=== PATIENT | female | born 1950 | race Caucasian/White ===

== ENCOUNTER 2017-10-26 07:54 | Inpatient (IN) ==
[~2017-10-26 07:54] MED LIST: ACETAMINOPHEN 500 MG TABLET PO ONE; CLINDAMYCIN PB 900 MG/50 ML BAG IV ONE; DEXAMETHASONE 4 MG/ML INJECTION IVP ONE; FAMOTIDINE PB 20 MG/50 ML BAG IV ONE; LIDOCAINE 1% (10mg/ml) 2mL INJ PF SDV ID ONE; MELOXICAM 15 MG TABLET PO ONE; METOCLOPRAMIDE 10mg/2ml INJECTION IVP ONE; ONDANSETRON 4 MG/2 ML INJECTION IVP ONE; TRANEXAMIC ACID 1,000 MG in NS 100 ML IV ONE
[2017-10-26] MEDS ORDERED: EPINEPHrine PF 0.25 MG, BUPIVACAINE 0.25% PF 30 ML, KETOROLAC INJ 60 MG in NS 30 ML OPSITE ONE (08:00)
[2017-10-26] MEDS: NOZIN NASAL SWAB NAS SCH ×5 (08:47→21:54)
[2017-10-26] MEDS ORDERED: SALINE FLUSH 10ml SYRINGE IV PRN (09:01)
--- NOTE | 2017-10-26 09:38 | Anesthesia Preoperative Report ---
<Chris Jackman - Last Filed: 10/26/17 11:10> Anesthesia Preoperative Record - Date and Time Date: 10/26/17 Preoperative Diagnosis: Unilateral primary osteoarthristis, right hip Allergies/Adverse Reactions: Allergies Allergy/AdvReac Type Severity Reaction Status Date / Time Influenza Virus Vaccines Allergy Unknown erythema Verified 10/26/17 08:28 Penicillins Allergy Unknown Hives Verified 10/26/17 08:28 lisinopril AdvReac Unknown Cough Verified 10/26/17 08:28 morphine AdvReac Unknown n/v Verified 10/26/17 08:28 niacin AdvReac Unknown fatigue, Verified 10/26/17 08:28 rash - Vital Signs Vital Signs: Temperature 98.0 F 10/26/17 08:16 Pulse Rate 82 10/26/17 09:06 Respiratory Rate 18 10/26/17 09:06 Blood Pressure 122/72 10/26/17 09:06 Pulse Oximetry 97 10/26/17 08:16 Height and Weight: Height 1.6 m Weight 89.7 kg Body Mass Index 35.0 - Medications Inpatient Medications: Current Medications Lactated Ringer's (Lactated Ringers) 1,000 mls @ 50 mls/hr IV .Q20H [facility] Last Admin: 10/26/17 08:45 Dose: 50 mls/hr Sodium Chloride (Iv Flush) 10 - 80 ml IV PRN PRN PRN Reason: [place] Home Medications: Home Medications Medication Instructions Recorded Confirmed Type Cozaar (losartan) 25 mg tablet 25 mg PO DAILY 90 Days #90 tab 08/20/17 10/26/17 History Flonase (Fluticasone) 50 mcg nasal 1 spray EA NOSTRIL BID 14 Days #16 08/20/17 10/26/17 History spray g Lipitor (atorvastatin) 20 mg tablet 10 mg PO DAILY 90 Days #45 tab 08/20/17 History Wellbutrin SR (bupropion HCl SR) 150 mg PO BID 90 Days #180 tab 08/20/17 History 150 mg tablet,12 hr albuterol sulfate HFA 90 2 puff INH Q4-6HR PRN 14 Days #9 g 08/20/17 10/26/17 History mcg/actuation aerosol inhaler amitriptyline 25 mg tablet 25 mg PO HS 90 Days #90 tab 08/20/17 10/26/17 History aspirin 81 mg tablet,delayed 81 mg PO DAILY 08/20/17 10/25/17 History release Acetaminophen [Tylenol] 500 - 1,000 mg PO BID 09/29/17 10/26/17 History Cartilage/Collagen/Bor/Hyalur 1 each PO DAILY 09/29/17 10/26/17 History [Joint Health Tablet] Metabolism Boost 1 tab PO DAILY 09/29/17 10/26/17 History [place]-3/Dha/Epa/Fish Oil [Fish Oil 1,000 mg PO DAILY 09/29/17 10/26/17 History 1,000 mg Softgel] raNITIdine HCl [Zantac] 150 mg PO DAILY 10/18/17 10/26/17 History Docusate Sodium [Colace] 1 cap PO PRN PRN 10/25/17 10/26/17 History Ibuprofen [Advil] 4 tab PO Q4H PRN 10/25/17 10/25/17 History Michelle-D 24Hr 1 tab PO DAILY 10/26/17 10/26/17 History - ASA ASA Score: 2 - Discussion Discussion: Discussed risks/options/alternatives of anesthesia and questions answered. Patient consents. Nursing pain assessment noted. Attestation Statement: Prior to the delivery of any anesthetic medication, I examined the patient, developed the plan, obtained the patient's consent and discussed the risk and benefits of the procedure with the patient/guardian. <Tyrone Matias - Last Filed: 10/26/17 11:16> Anesthesia Preoperative Record - Date and Time Date: 10/26/17 Preoperative Diagnosis: Unilateral primary osteoarthristis, right hip Proposed Procedure: Right total hip NPO Since Date: 10/26/17 NPO Since Time: 00:00 - Vital Signs Vital Signs: Temperature 98.0 F 10/26/17 08:16 Pulse Rate 82 10/26/17 09:06 Respiratory Rate 18 10/26/17 09:06 Blood Pressure 122/72 10/26/17 09:06 Pulse Oximetry 97 10/26/17 08:16 Height and Weight: Height 1.6 m Weight 89.7 kg Body Mass Index 35.0 - Medications Inpatient Medications: Current Medications Lactated Ringer's (Lactated Ringers) 1,000 mls @ 50 mls/hr IV .Q20H [facility] Last Admin: 10/26/17 08:45 Dose: 50 mls/hr Sodium Chloride (Iv Flush) 10 - 80 ml IV PRN PRN PRN Reason: [place]ushing Is Patient on Beta Ike?: No - Medical History Respiratory: Reports: Asthma (HX), Other (SEASONAL ALLERGIES) DENIES: Sleep Apnea Cardiovascular: Reports: Hypertension, High Cholesterol Gastrointestional: Reports: Gastroesophageal Reflux Disease Neuro/Musculoskeletal: Reports: Depression - Surgical History GI Surgery/Treatments: Reports: Colonoscopy, EGD (with dil 2000) Reproductive Surgery/Treatment: Reports: Hysterectomy Anesthesia Reactions: None Hx Family Anesthesia Reaction: No History of Motion Sickness: No - Social History Smoking Status: Never smoker Hx Chewing Tobacco Use: No Second Hand Exposure: No Substance Use Type: does not use Alcohol Intake: never Alcohol Intake Frequency: does not drink - Pertinent Findings EKG: Sinus Rhythm - Physical Exam Respiratory Exam: Present: lungs clear Cardiovascular Exam: Present: regular rate and rhythm - Airway Assessment Mallampati Score: II TMD: 3 Fingerbreadths Neck Extension: fair Overall Assessment: no airway concerns - ASA ASA Score: 2 - Plan Regional/Trunk Block: Spinal - Discussion Discussion: Discussed risks/options/alternatives of anesthesia and questions answered. Patient consents. Nursing pain assessment noted. Present for Discussion: spouse, family member Attestation Statement: Prior to the delivery of any anesthetic medication, I examined the patient, developed the plan, obtained the patient's consent and discussed the risk and benefits of the procedure with the patient/guardian.
[2017-10-26] MEDS ORDERED: VANCOMYCIN 1,000 MG INJECTION ONE (09:41)
[2017-10-26] MEDS ORDERED: MIDAZOLAM 2mg/2ml INJECTION ONE (10:33)
[2017-10-26] MEDS ORDERED: LIDOCAINE 2% (100mg/5mL) 5ml PF SDV ONE (10:33)
[2017-10-26] MEDS ORDERED: PROPOFOL 500 MG/50 ML VIAL ONE ×2 (10:34→12:42)
[2017-10-26] MEDS ORDERED: BUPIVACAINE 0.75%/DEXTROSE 8.5% SPINAL 2 ML AMPULE IJ ONE (10:34)
[2017-10-26] MEDS ORDERED: VANCOMYCIN 1,000 MG INJECTION IAR ONE (11:13)
[2017-10-26] MEDS ORDERED: PROPOFOL 40 ML ONE (12:13)
[2017-10-26] MEDS ORDERED: METOCLOPRAMIDE 10mg/2ml INJECTION IVP PRN (12:13)
[2017-10-26] MEDS ORDERED: ONDANSETRON 4 MG/2 ML INJECTION IVP PRN ×2 (12:13→13:31)
[2017-10-26] MEDS ORDERED: HYDROMORPHONE 2 MG/ML INJECTION IVP PRN (12:13)
--- NOTE | 2017-10-26 12:23 | Operative Note ---
- Procedure Preoperative Diagnosis: Right hip primary degenerative joint disease Postoperative Diagnosis: Same as preoperative diagnosis. Surgeon: Enrike Nicole MD Carton Making Machinist: Alverto Rai Complications: None. Anesthesia: Spinal. Estimated Blood Loss: See Anesthesia Record. Fluids: Please see Anesthesia Record. Description of Procedure: Mrs. Hector and her right hip were identified and marked in the preoperative holding area. She was brought back to the operating suite and spinal anesthetic was administered. She was then placed in a lateral decubitus position with her right hip up. The right lower extremity was prepped and draped in my normal sterile fashion. Timeout was performed. The Stem robotic arm was used to assist with the surgery. A pelvic array was placed into the iliac crest through three small incisions. A posterior approach was utilized. An approximately 15 cm incision was made in the skin and dissection carried down to the muscle fascia which was then split in line with skin incision. Charnley retractor was placed. The short external rotators were identified and tagged and detached. A capsulotomy was performed and the hip dislocated. A femoral neck osteotomy was performed at the pre-templated level measuring down from the femoral head 55mm. The head was removed and acetabulum exposed. Labrum was removed. The acetabulum was then registered with the robot. The robotic arm was then used to ream with a 53 reamer. The robot then was again used to place a 54 Trident cup in 40 of tilt and 25 of anteversion. A liner was then placed. The proximal femur was exposed and prepared with a cookie cutter followed by reaming and broaching to a size 3. We trialed with a + 5 head. After thorough irrigation a final Accolade 2 size 3 stem with 132 degree neck was placed. Leg length and offset were checked with the robot and were good. A final +5 ceramic 36 mm head was placed and the hip reduced. Betadine solution was used to irrigate throughout the case. It was followed by normal saline irrigation. Joint cocktail was injected throughout soft tissue. The capsulotomy was repaired with Ethibond. Short external rotators were also repaired with Ethibond. 1 g of vancomycin powder was placed into the wound. The muscle fascia was then repaired with #1 Vicryl. I then left my assistant facility manager to close the subcutaneous tissue with 2-0 Vicryl followed by running 4-0 Monocryl skin followed by Dermabond and a sterile dressing. The patient with any placed back into supine position and taken to recovery room in the care of anesthesia.
[2017-10-26] MEDS ORDERED: LR 1,000 ML IV SCH (13:30)
[2017-10-26] MEDS ORDERED: LORazepam 1 MG TABLET PO PRN (13:31)
[2017-10-26] MEDS ORDERED: DiphenhydrAMINE 25 MG CAPSULE PO PRN (13:31)
[2017-10-26] MEDS ORDERED: NOZIN NASAL SWAB NAS ONE (13:31)
[2017-10-26] MEDS ORDERED: DiphenhydrAMINE 50 MG/ML INJECTION IVP PRN (13:31)
[2017-10-26] MEDS: NS 1,000 ML IV SCH (13:36)
--- NOTE | 2017-10-26 13:52 | XRay Report ---
Indication: postoperative image PROCEDURE: XR pelvis w/ 1 view RT hip: Encounter: Initial Comparison: CT dated October 12, 2017 Findings: Postoperative changes of right total hip replacement are seen. The lateral acetabular screw appears to protrude slightly through the cortex of the acetabulum. There is expected postoperative subcutaneous gas. No evidence of hardware failure or acute fracture. No retained radiopaque surgical instruments or sponges seen. Impression: New right total hip prosthesis without evidence of immediate complication. .
[2017-10-26 14:04] VITALS: BMI 36.3
--- NOTE | 2017-10-26 14:21 | Anesthesia Postoperative Note ---
- Date and Time Date: 10/26/17 Time: 13:22 - Status Patient Participated in Evaluation: Patient Participated in Person Vital Signs: Temperature 96.8 F 10/26/17 13:46 Pulse Rate 72 10/26/17 14:15 Respiratory Rate 16 10/26/17 14:15 Blood Pressure 115/69 10/26/17 14:01 Pulse Oximetry 100 10/26/17 14:15 Respiratory Function: Airway Patent, Regular Respirations Cardiovascular Function: Regular Pulse Mental Status: Alert and Oriented Pain Intensity: 0 Hydration: IV Infusing Complications During Recover: None Apparent - Follow-Up Instructions Instructions: Per Surgeon
[2017-10-26] MEDS: ACETAMINOPHEN 325 MG TABLET PO SCH ×3 (14:45→21:48)
[2017-10-26] MEDS ORDERED: ALBUTEROL 2.5mg/3ml (0.083%) NEB AEROSOL PRN (15:30)
[2017-10-26] MEDS: CLINDAMYCIN PB 900 MG/50 ML BAG IV SCH ×2 (16:23→21:49)
[2017-10-26] MEDS: NAPROXEN 220 MG TABLET PO SCH (17:45)
[2017-10-26] MEDS ORDERED: ATORVASTATIN 20 MG TABLET PO SCH (21:00)
[2017-10-26] MEDS ORDERED: AMITRIPTYLINE 25 MG TABLET PO SCH (21:00)
[2017-10-26] MEDS ORDERED: SENNOSIDES 8.6 MG TABLET PO SCH (21:00)
[2017-10-26] MEDS: FLUTICASONE NASAL SPRAY 50mcg EA NOSTRIL SCH (21:46)
[2017-10-26] MEDS: BuPROPion SR 150mg (12HR) TABLET PO SCH (21:47)
[2017-10-26] MEDS: DOCUSATE SODIUM 100 MG PO SCH (21:48)
[2017-10-26] MEDS: Oxycodone *IR* 5 MG TABLET PO PRN ×2 (21:48→23:18)
[2017-10-26] MEDS: ASPIRIN *EC* 81 MG TABLET PO SCH (21:48)
[2017-10-27] MEDS: Oxycodone *IR* 5 MG TABLET PO PRN (03:09)
[2017-10-27] MEDS: NS 1,000 ML IV SCH (03:12)
[2017-10-27] MEDS: CLINDAMYCIN PB 900 MG/50 ML BAG IV SCH (03:28)
[2017-10-27] MEDS: NOZIN NASAL SWAB NAS SCH (06:14)
[2017-10-27] MEDS: ACETAMINOPHEN 325 MG TABLET PO SCH ×2 (08:28→12:07)
[2017-10-27] MEDS: NAPROXEN 220 MG TABLET PO SCH (08:28)
[2017-10-27] MEDS: ASPIRIN *EC* 81 MG TABLET PO SCH (08:29)
[2017-10-27] MEDS: FLUTICASONE NASAL SPRAY 50mcg EA NOSTRIL SCH (08:30)
[2017-10-27] MEDS: DOCUSATE SODIUM 100 MG PO SCH (08:30)
[2017-10-27] MEDS: BuPROPion SR 150mg (12HR) TABLET PO SCH (08:30)
--- NOTE | 2017-10-27 08:45 | Discharge Summary ---
Orthopedic Discharge Info Date of admission: 10/26/17 07:54 Anticipated date of discharge: 10/27/17 Primary care physician: Linh Lynch MD Attending Physician: Clifton Nicole MD Consults: 10/26/17 07:59 Consult to Anesthesiology [CONS] Routine Reason For Exam: Preoperative Assessment 10/26/17 13:31 Case Management Consult [CONS] Routine Reason For Exam: Discharge Planning DME-Walker [CONS] Routine Height: 5 ft 3 in Weight: 89.7 kg Total Joint Outpatient Therapy [CONS] Routine Comment: Remove dressing in 2 weeks - Procedures Procedures: Rt NAIN 10/26/17 - Laboratory Result Diagrams: 10/27/17 04:08 10/27/17 04:08 Laboratory: Abnormal lab results 10/27/17 10/27/17 Range/Units 04:08 04:08 Hgb 10.8 L (12-16) GM/DL Chloride 108 H (98-107) MEQ/L BUN 22.0 H (7-17) MG/DL BUN/Creatinine Ratio 31 H (6-26) RATIO Glucose 122 H (65-110) MG/DL H & H 10/27/17 Range/Units 04:08 Hgb 10.8 L (12-16) GM/DL Orthopedic Discharge HPI - HPI Comments This patient was admitted for elective surgical tx of end stage degenerative joint disease that failed to respond to conservative treatment. Further details of this is found in the admission H&P. Orthopedic Hospital Course Hospital course: 10/27/17 08:41 After appropriate preoperative clearance and signing of operative consent, the patient was given IV antibiotics, according to orthopedic protocol. The patient was taken to the operating room and underwent elective right total hip arthroplasty on 10/26/17. Following surgery, antibiotics were discontinued less than 24 hours according to joint protocol. Aspirin 81mg BID was initiated and SCDs added for DVT addentional protection. The aspirin should be continued for 6 weeks post op. The dressing was clean, dry, and intact. Pain control was obtained via multimodal approach. Bowel motivation addressed with scheduled and PRN medications. Early mobilization was initiated through PT services. Discharge arrangements made by a collaborative effort between the patient and Case Management. Her Hgb dropped to 10.8 after surgery. She was asymptomatic. This is an acceptable and expected drop associated with NAIN. She can f/u with her PCP in 1 week. Pt will take a MV with iron. No additional intervention is expected. She had one oximeter reading in the 80's but the others were all in the mid to upper 90's. She is sensitive to Oxycodone and will use Aleve and Tylenol for most of the pain needs. Follow-up is scheduled in 2-3 weeks. Discharge instructions given by orthopedic providers and nursing staff at discharge. Discharge condition was good. 10/27/17 12:27 Care extended to > 2 midnight stays?: No Discharge Plan - Med Rec/Dispo Referrals/Follow Up: Fely Myers APRN [Advanced Practice Nurse] - 11/17/17 10:00 am [place] [facility] [place] Additional Instructions: [facility] ON 11/01/2017 AT 8:50AM FOR PHYSICAL THERAPY EVAL. PHONE Prescriptions: New Acetaminophen [Tylenol] 650 mg PO QID tab Aspirin *EC* [Ecotrin] 81 mg PO BID tab Milk of Magnesia [Mom] 30 ml PO DAILY udc PEG 3350 17gm PACKET [Miralax] 17 gm PO DAILY packet Oxycodone *IR* [Roxicodone *Ir*] 1 tab PO Q3H PRN #10 tab PRN Reason: Pain Continue [place]-3/Dha/Epa/Fish Oil [Fish Oil 1,000 mg Softgel] 1,000 mg PO DAILY raNITIdine HCl [Zantac] 150 mg PO DAILY Docusate Sodium [Colace] 1 cap PO PRN PRN PRN Reason: Stool Softening Cartilage/Collagen/Bor/Hyalur [Joint Health Tablet] 1 each PO DAILY Metabolism Boost 1 tab PO DAILY Michelle-D 24Hr 1 tab PO DAILY Wellbutrin SR (bupropion HCl SR) 150 mg tablet,12 hr 150 mg PO BID 90 Days # 180 tab Lipitor (atorvastatin) 20 mg tablet 10 mg PO DAILY 90 Days #45 tab amitriptyline 25 mg tablet 25 mg PO HS 90 Days #90 tab Cozaar (losartan) 25 mg tablet 25 mg PO DAILY 90 Days #90 tab albuterol sulfate HFA 90 mcg/actuation aerosol inhaler 2 puff INH Q4-6HR PRN 14 Days #9 g PRN Reason: Wheezing Flonase (Fluticasone) 50 mcg nasal spray 1 spray EA NOSTRIL BID 14 Days #16 g Changed Ibuprofen [Advil] 4 tab PO Q8H PRN #0 PRN Reason: Pain Discontinued Acetaminophen [Tylenol] 500 - 1,000 mg PO BID aspirin 81 mg tablet,delayed release 81 mg PO DAILY - Disposition 01 Discharged Home, Self-Care - Dismissal Complete Discharge Instructions are:: Complete, Incomplete
--- NOTE | 2017-10-27 08:51 | Orthopedic Progress Note ---
Date: Date: 10/27/17 Time: 847 Subjective/Severity of Illness: Doing very well. Pain is controlled. No CP, cough or SOA. she has been mobile with good tolerance. Dressings are dry. Hgb 10.8 , Afebrile, Pt is hopeful to go home today. Orthopedic Exam Vital signs: Temperature 97.9 F 10/27/17 03:37 Pulse Rate 91 10/27/17 07:39 Respiratory Rate 13 10/27/17 07:39 Blood Pressure 137/75 10/27/17 07:39 Pulse Oximetry 93 10/27/17 07:39 - Constitutional General Appearance: Present: alert, cooperative, no acute distress - Respiratory Exam Present: non-labored - Cardiovascular Exam Present: pedal pulses intact - Extremities Exam Present: pulses intact. Absent: calf tenderness - Dressing Dressing: dry, intact, no drainage - Integumentary Exam Present: pink, warm, dry - Neurological Exam Present: intact to light touch, no deficits - Psychiatric Exam Present: alert, normal affect - Labs Result Diagrams: 10/27/17 04:08 10/27/17 04:08 Abnormal lab results 10/27/17 10/27/17 Range/Units 04:08 04:08 Hgb 10.8 L (12-16) GM/DL Chloride 108 H (98-107) MEQ/L BUN 22.0 H (7-17) MG/DL BUN/Creatinine Ratio 31 H (6-26) RATIO Glucose 122 H (65-110) MG/DL H & H 10/27/17 Range/Units 04:08 Hgb 10.8 L (12-16) GM/DL Orthopedic Assessment and Plan (1) Primary osteoarthritis of right hip Status: Acute Assessment and Plan: Aspirin protocol for VTE prophylaxis. SCD's for added DVT protection. PT/OT services to improve independent function. Discharge Planning per Case Management. - Anticoagulation Therapy Anticoagulation: ASA 81 mg PO BID x6 weeks - Additional Diagnoses Anemia: no intervention required, patient was asymptomatic, other (F/U with PCP. ) Hospital Course Summary Disclaimer: The visit summary below is not to be considered part of the above Progress Note.
[2017-10-27] MEDS ORDERED: RANITIDINE 150 MG TABLET PO SCH (09:00)
[2017-10-27] MEDS ORDERED: PSE PO SCH (09:00)
[2017-10-27] MEDS ORDERED: POLYETHYL GLYCOL 3350 17gm PACKET PO SCH (09:00)
[2017-10-27] MEDS ORDERED: LOSARTAN 50 MG TABLET PO SCH (09:00)
[2017-10-27] MEDS ORDERED: FEXOFENADINE PO SCH (09:00)
[2017-10-27 12:19] VITALS: BP 112/68; PULSE 86; RESP 18; TEMP 97.6; O2SAT 96
[2017-10-27] MEDS ORDERED: SENNOSIDES 8.6 MG TABLET PO PRN (13:04)
[2017-10-28] MEDS ORDERED: BISACODYL 10 MG SUPPOSITORY RECTALLY SCH (20:00)
== END 2017-10-27 13:35 | disposition home or self-care (01) | DRG 470 ==
LOC: NMC.PERIOP 07:54 → SRG 13:24
PROVIDERS: ADMIT Orthopaedic Surgery; ATTEND Orthopaedic Surgery